=== PATIENT | male | born 1990 | race Caucasian/White ===

== ENCOUNTER → 2018-06-26 | Emergency (ER) | payer MEDICAID, OTHER ==
[~2018-06-26] VITALS: Ht 188 cm; Wt 72.7 kg
[~2018-06-26] MED LIST: CHLO25CA10 PO; LORazepam 2 mg/ml vial IV ONE; ONDA8TAB6 PO; chlordiazePOXIDE 25mg capsule PO ONE; famotidine/PF 10 mg/ml inj IV ONE; ketorolac trometh. 30mg/ml inj. IV ONE; levetiracetam inj 1,000 MG in normal saline 100ml IV soln 90 ML IV ONE; normal saline 1000ML IV soln IVB ONE; normal saline 1000ml 1,000 ML IV ONE; ondansetron/PF 4mg/2ml inj IV ONE; pantoprazole 40 MG vial IV ONE
--- NOTE | 2018-06-26 19:19 | NUR ---
PATIENT STARTED TO COMPLAIN OF A TIGHTNESS IN HIS CHEST/FLUTTER FEELING IN HIS HEART, SPOKE WITH MD, STARTED ACS PROTOCOL
[2018-06-26 19:21] LABS: BASOPHILS # (AUTO) 0.1 X10'3 (0-0.2); BASOPHILS % (AUTO) 0.4 % (0-1); EOSINOPHILS # (AUTO) 0.1 X10'3 (0-0.9); EOSINOPHILS % (AUTO) 0.8 % (0-6); HEMATOCRIT 44.8 % (42.0-52.0); HEMOGLOBIN 14.8 g/dl (14.0-17.9); LYMPHOCYTES # (AUTO) 0.9 X10'3 (1.1-4.8); LYMPHOCYTES % (AUTO) 6.8 % (21-51); MEAN CORPUSCULAR HEMOGLOBIN 29.7 PG (27.0-31.0); MEAN CORPUSCULAR VOLUME 90.1 FL (78-98); MEAN PLATELET VOLUME 6.9 FL (7.4-10.4); MONOCYTES # (AUTO) 0.4 X10'3 (0-0.9); NEUTROPHILS # (AUTO) 11.5 X10'3 (1.8-7.7); PLATELET COUNT 156 X10'3 (140-440); RED BLOOD COUNT 4.97 X10'6 (4.70-6.10); RED CELL DISTRIBUTION WIDTH 14.1 % (11.5-14.5)
[2018-06-26 19:32] LABS: PARTIAL THROMBOPLASTIN TIME 29 SECONDS (22-32); PROTHROMBIN TIME 9.7 SECONDS (9.0-12.0)
[2018-06-26 19:40] LABS: ALANINE AMINOTRANSFERASE 50 U/L (12-78); ALBUMIN 3.5 G/DL (3.4-5.0); ALBUMIN/GLOBULIN RATIO 0.8 (1.1-1.5); ALKALINE PHOSPHATASE 206 IU/L (46-116); ANION GAP 17 (8-16); ASPARTATE AMINO TRANSFERASE 62 U/L (10-37); BILIRUBIN,TOTAL 1.3 MG/DL (0.1-1.0); BLOOD UREA NITROGEN 9 MG/DL (7-18); BUN/CREATININE RATIO 13.4 (5.4-32.0); CALCIUM 8.2 MG/DL (8.5-10.1); CHLORIDE 95 MMOL/L (99-107); CREATININE 0.67 MG/DL (0.60-1.10); GLUCOSE 86 MG/DL (70-104); POTASSIUM 3.2 MMOL/L (3.5-5.1); SODIUM 136 MMOL/L (135-145); TOTAL CARBON DIOXIDE 24.4 MMOL/L (24-32); TOTAL PROTEIN 7.8 G/DL (6.4-8.2); eGFR > 90 ML/MIN
[2018-06-26 21:11] LABS: CLARITY,URINE CLEAR (Clear); COLOR,URINE YELLOW (Yellow); GLUCOSE, URINE NEGATIVE (Neg); KETONES,URINE 15 mg/dl (Neg); LEUKOCYTE ESTERASE ,URINE NEGATIVE (Neg); NITRITES, URINE NEGATIVE (Neg); OCCULT BLOOD,URINE MODERATE (Neg); PROTEIN,URINE 100 mg/dl (Neg)
[2018-06-26 21:43] LABS: UA COLLECTION TYPE CLN CATCH MIDSTREAM
[2018-06-26 21:44] LABS: HYALINE CASTS 0-3 /LPF (NEGATIVE)
[2018-06-26 21:45] LABS: BACTERIA,URINE FEW /HPF (Neg); MUCUS STRANDS MODERATE /LPF (Neg); RBC,URINE 0-2 /HPF (0-2); SQUAMOUS EPITHELIAL CELL,UR FEW /LPF (FEW); WBC,URINE 0-4 /HPF (0-4)
[2018-06-26 21:57] VITALS: BP 152/91
== END | disposition home or self-care (01) ==
LOC: ER 17:58
DX: F10.20 Alcohol dependence, uncomplicated (principal); R56.9 Unspecified convulsions; K29.70 Gastritis, unspecified, without bleeding; Z79.899 Other long term (current) drug therapy; Y90.9 Presence of alcohol in blood, level not specified
CPT/HCPCS: 36415; 71045; 80053; 81001; 84484; 85025; 85610; 85730; 93005; 96361; 96365; 96375; 99284; C9113; J1885; J1953; J2060; J2405; J3490; J7030